=== PATIENT | female | born 1985 | race African-American/Black ===

== ENCOUNTER 2024-04-29 10:11 | Emergency (ER) | payer OTHER ==
[~2024-04-29] VITALS: Ht 167.6 cm; Wt 73.0 kg
[2024-04-29 10:15] VITALS: TEMP 98
[2024-04-29 12:07] LABS: BASOPHILS % (AUTO) 1.2 % (0.0-2.0); EOSINOPHILS % (AUTO) 6.7 % (1.0-6.0); HEMATOCRIT 39.3 % (36-46); HEMOGLOBIN 12.6 g/dL (12.0-16.0); LYMPHOCYTES # (AUTO) 2.3 K/uL (1.0-4.8); LYMPHOCYTES % (AUTO) 36.8 % (22.0-44.0); MEAN CORPUSCULAR HEMOGLOBIN 26.6 pg (26.0-34.0); MEAN CORPUSCULAR VOLUME 83 fL (80-100); MONOCYTES # (AUTO) 0.6 K/uL (0.1-1.0); MONOCYTES % (AUTO) 9.7 % (2.0-9.0); NEUTROPHILS # (AUTO) 2.9 K/uL (1.8-7.7); NEUTROPHILS % (AUTO) 45.6 % (40.0-70.0); PLATELET COUNT (AUTO) 338 K/uL (150-450); RED BLOOD CELL COUNT(AUTO) 4.72 MIL/uL (4.00-5.20); RED CELL DISTRIBUTION WIDTH 17.5 % (11.5-14.5); WHITE BLOOD COUNT (AUTO) 6.3 K/uL (4.5-11.0)
[2024-04-29 12:24] LABS: ANION GAP 5 mmol/L (8-16); CALCIUM, TOTAL 9.2 mg/dL (8.8-10.5); CARBON DIOXIDE 31 mmol/L (22-29); CHLORIDE 102 mmol/L (98-107); CREATININE 0.68 mg/dL (0.60-1.30); GLOMERULAR FILTR. RATE CALC > 60 mL/min (>60); GLUCOSE,RANDOM 84 mg/dL (70-110); POTASSIUM 3.9 mmol/L (3.5-5.1); SODIUM SERUM 138 mmol/L (136-145); UREA NITROGEN, BLOOD 11 mg/dL (7-18)
[2024-04-29 12:27] LABS: HCG,QUANTITATIVE < 1 mIU/mL (0-6)
[2024-04-29 12:34] VITALS: BP 132/70; PULSE 79; RESP 18; O2SAT 99
== END 2024-04-29 13:31 | disposition home or self-care (01) ==
LOC: EMS 10:11
DX: O20.9 Hemorrhage in early pregnancy, unspecified (principal); N92.0 Excessive and frequent menstruation with regular cycle; N94.6 Dysmenorrhea, unspecified; Z3A.01 Less than 8 weeks gestation of pregnancy
CPT/HCPCS: 76801; 80048; 84702; 85025; 99284